=== PATIENT | male | born 1975 | race Caucasian/White ===

== ENCOUNTER 2025-03-08 09:10 | Inpatient (IN) | payer MEDICAID, SELFPAY ==
[2025-03-08] VITALS (7 sets, daily range): BP systolic 123–159; BP diastolic 78–102; PULSE 62–95; RESP 15–19; TEMP 36.7–36.9; O2SAT 95–99; BMI 26.6
--- NOTE | 2025-03-08 09:32 | EDS_ITS ---
HPI History of Present Illness Chief Complaint: ETOH Intox PFSH PFSH Home Medications ?Medication ?Instructions ?Recorded ?Last Taken ?Type NK 03/08/25 Unknown History Allergy/AdvReac Type Severity Reaction Status Date / Time No Known Allergies Allergy Verified 03/08/25 09:11 Social History Smoking Status: Current every day smoker tobacco type: cigarettes EXAM Physical Exam Const Vital Signs: 03/08/25 09:11 03/08/25 09:11 03/08/25 10:06 Temperature 98.4 F Temperature Source Oral Pulse Rate 95 67 72 Respiratory Rate 16 19 H 19 H Blood Pressure 147/102 H 154/78 H 136/90 H Blood Pressure Mean 117 103 105 Pulse Ox 98 95 99 Oxygen Delivery Method Room Air Room Air Room Air 03/08/25 10:53 03/08/25 12:00 Temperature Temperature Source Pulse Rate 78 62 Respiratory Rate 19 H 15 Blood Pressure 159/98 H 135/89 H Blood Pressure Mean 118 104 Pulse Ox 98 96 Oxygen Delivery Method Room Air Room Air MDM MDM MDM Narrative Medical decision making narrative: HISTORY OF PRESENT ILLNESS: Chief complaint: Alcohol detox 50-year-old male presents with request to enter alcohol detox. Notes he drinks at least a 12 pack a day. Last drink was yesterday. Denies other drug use. Denies any symptomatology other than nausea. Denies headache. REVIEW OF SYSTEMS: Pertinent positives: Nausea Pertinent negatives: Headache, chest pain, shortness of PHYSICAL EXAM: Nursing triage notes reviewed, Vital signs reviewed Constitutional: please see mdm HENT: MMM Eyes: Pupils equal round and reactive to light, Extraocular muscles intact Neck: No stridor, no JVD, full neck ROM Lungs: Clear to auscultation, No wheezing or rales. No increased work of breathing, no conversational dyspnea, no accessory muscle use, no nasal flaring. No respiratory distress noted Heart: Regular rate and rhythm, No murmurs, No rubs and No gallops, 2+ distal pulses (radial, femoral, posterior tibial) in all extremities Abdomen: Soft, there is no tenderness, rigidity, rebound or guarding, no obvious peritoneal signs, no palpable pulsatile abdominal masses, no auscultated abdominal bruit : No CVAT Extremities: No edema Neuro: No new focal neurological deficits, cranial nerves II through XII intact, 5/5 strength in all present extremities. Intact sensation to light touch in all present extremities, 2+ reflexes bilateral patella tendons. Skin: No rash or lesions noted MEDICAL DECISION MAKING: Chief Complaint: please see HPI External records reviewed: Reviewed prior labs, images, cardiovascular studies Factors affecting care: history of alcohol abuse Social determinants of health: history of alcohol abuse History obtained from others: none Consults: internal medicine (Dr. Justice) excepted patient's case to [facility] MDM Narrative: The patient is initially hemodynamically stable, afebrile nontoxic-appearing. Exam unremarkable. medical clearance labs were obtained. Patient is treated with nicotine patch and Zofran for symptomatic relief. ALL IMAGES (IF OBTAINED) HAVE BEEN PERSONALLY REVIEWED AND INTERPRETED BY MYSELF. CBC with leukocytosis suggestive of systemic information, no anemia or thrombocytopenia BMP without evidence of significant electrolyte abnormalities, no anion gap, no acute kidney injury. Serum alcohol negative Urine tox cream Patient was medically cleared for detox admission. Discussed with hospitalist accepted the patient's case to [facility]. The patient and/or family, caregivers express understanding. The patient and/or family, caregivers agrees with the plan. Shared decision making: I will have a discussion with the patient and or visitors regarding risk/benefits of further testing or admission. They will be made aware of of the risk/benefits inherent in this decision they will be given the opportunity to voice understanding. Total critical care time today provided was at least 0 minutes. This excludes separately billable procedures. Critical care time (if documented) is secondary to the patient having high probability of clinically significant/life threatening deterioration in the patient's condition which required my urgent intervention. Impression: 1. Encounter for alcohol detox 2. History of alcohol abuse Dispo: Admit to [facility] This note was generated with [employer] dictation software. It may contain incorrect words, spelling, and punctuation that were not noted in review of the chart prior to signing. Lab Data Labs: Laboratory Results - last 24 hr 03/08/25 03/08/25 09:24 10:48 WBC 11.3 H RBC 5.28 Hgb 17.1 H Hct 50.2 MCV 95.1 H MCH 32.4 H MCHC 34.1 RDW Std Deviation 53.0 H RDW Coeff of Chloe 15.1 H Plt Count 330 MPV 10.3 Immature Gran % (Auto) 0.500 Neut % (Auto) 73.5 H Lymph % (Auto) 13.9 L [place] % (Auto) 8.6 Eos % (Auto) 2.9 Baso % (Auto) 0.6 Absolute Neuts (auto) 8.3 H Absolute Lymphs (auto) 1.57 Nucleated RBC % 0 Sodium 138 Potassium 3.6 Chloride 98 Carbon Dioxide 27.3 Anion Gap 14 BUN 13 Creatinine 0.81 Estim Creat Clear Calc 107.89 Est GFR (MDRD) Non-Af 107 BUN/Creatinine Ratio 15.9 Glucose 92 Calcium 9.7 Urine Opiates Screen NEGATIVE U Buprenorphine Qual NEGATIVE Ur Oxycodone Screen NEGATIVE Urine Methadone Screen NEGATIVE Urine Fentanyl Screen NEGATIVE Ur Barbiturates Screen NEGATIVE Ur Phencyclidine Scrn NEGATIVE Ur Amphetamines Screen NEGATIVE U Benzodiazepines Scrn NEGATIVE Urine Cocaine Screen NEGATIVE U Cannabinoids Screen NEGATIVE Ethyl Alcohol < 10.1 Discharge Plan Triage Chief Complaint: ETOH Intox ED Provider: Daniel Minor Dx/Rx/DC Orders Prescriptions: No Action NK Primary Care Provider: Care Physician,No Primary Referrals: Care Physician,No Primary [Primary Care Provider] - Print Language: German
--- NOTE | 2025-03-08 10:32 | EKG12_ITS ---
Test Reason : DETOX Blood Pressure : */* mmHG Vent. Rate : 68 BPM Atrial Rate : 68 BPM P-R Int : 152 ms QRS Dur : 80 ms QT Int : 414 ms P-R-T Axes : 72 68 78 degrees QTcB Int : 440 ms Normal sinus rhythm Normal ECG Confirmed by Manny Busby ([id number]), city editor ESTEFANI DREW ([id number]) on 03/13/2025 12:09:18 PM Referred By: Confirmed By: Manny Busby
[2025-03-08 10:50] LABS: Absolute Lymphocyte Count 1.57 X10^3/uL (0.83-4.51); Absolute Neutrophil Count 8.3 X10^3/uL (2.0-7.7); Basophil# 0.07 X10^3/uL; Basophil% 0.6 % (0-1); Eosinophil# 0.33 X10^3/uL; Eosinophils% 2.9 % (0-5); Hematocrit 50.2 % (40-54); Hemoglobin 17.1 g/dL (13.0-16.5); Lymphocyte # 1.57 X10^3/ul (0.83-4.51); Lymphocyte % 13.9 % (19-41); Mean Corp Hgb Conc 34.1 g/dL (32-36); Mean Corpuscular Hgb 32.4 pg (27.0-32.0); Mean Corpuscular Volume 95.1 fL (80-94); Mean Platelet Vol. 10.3 fl (6.2-12.0); Monocyte# 0.98 X10^3/uL; Monocyte% 8.6 % (0-10); NRBC Flagged by Analyzer 0 % (0-5); Neutrophil # 8.32 X10^3/uL (2.7-7.7); Neutrophil % 73.5 % (47-70); Platelet Count 330 K/mm3 (150-450); RBC Distribution Width CV 15.1 % (11.6-14.6); Red Blood Count 5.28 M/mm3 (4.6-6.2); White Blood Count 11.3 K/mm3 (4.4-11.0)
[2025-03-08] MEDS: Ondansetron 4 MG/2 ML Vial IV (11:09)
[2025-03-08 11:13] LABS: Amphetamine Urine NEGATIVE (<1000 ng/mL); Barbiturate Urine NEGATIVE (< 200 ng/mL); Benzodiazepine Urine NEGATIVE (< 200 ng/mL); Buprenorphine Urine NEGATIVE (< 200 ng/mL); Cocaine Urine NEGATIVE (< 300 ng/mL); Fentanyl, Urine NEGATIVE; Methadone Urine NEGATIVE (< 300 ng/mL); Opiates Urine NEGATIVE (< 300 ng/mL); Oxycodone, Urine NEGATIVE (< 100 ng/mL); PCP Urine NEGATIVE (< 25 ng/mL); THC Urine NEGATIVE (< 50 ng/mL)
[2025-03-08 11:14] LABS: Alcohol, Blood (Medical)-Serum < 10.1 mg/dL (<=10.0); Anion Gap 14 (5-15); BUN 13 mg/dL (4-19); BUN/Creat Ratio 15.9 RATIO (10-20); Calcium,Total 9.7 mg/dL (7.6-11.0); Carbon Dioxide 27.3 mmol/L (21.0-32.0); Chloride 98 mmol/L (98-108); Creatinine, Serum 0.81 mg/dL (0.70-1.20); EST Glomerular Filtration Rate 107 (>60); Estimated Creatinine Clearance 107.89 ml/min (50-250); Glucose 92 mg/dL (70-99); Potassium 3.6 mmol/L (3.3-5.1); Sodium Level 138 mmol/L (133-145)
--- NOTE | 2025-03-08 12:16 | HP.PCM.HOS_ITS ---
HPI - General General Date of Admission: 03/08/25 Date of Service: 03/08/25 Chief Complaint: Desire for detoxification HPI Narrative ELIZ COWART, is a 50 M with past medical history significant for alcohol dependence who presented to the emergency department requesting to undergo detoxification. Patient admitted to drinking 12 packs of 25 ounces of beer almost on a daily basis. Patient's last drink was almost 24 hours prior to his admission. Patient reports significant tremors but denied any seizures. Patient denied any nausea no vomiting. Per patient he had been to detox on 1 previous occasion. Workup in the ED was essentially unremarkable except for slight polycythemia. Admitted to monitored bed for further management [facility] Medical History (Updated 03/08/25 @ 12:[address] Rikki Justice MD) Alcohol dependence in sustained full remission Home Medications ?Medication ?Instructions ?Recorded ?Last Taken ?Type NK 03/08/25 Unknown History Allergy/AdvReac Type Severity Reaction Status Date / Time No Known Allergies Allergy Verified 03/08/25 09:11 Social History Smoking Status: Current every day smoker tobacco type: cigarettes ROS ROS Narrative GENERAL: denies fever, chills, night sweats, weight loss, anorexia HEENT: denies headache, sinus congestion, or drainage, dysphagia RESPIRATORY: denies cough, sputum production, shortness of breath, dyspnea on exertion CARDIAC: denies chest pain, palpitations, orthopnea, PND GASTROINTESTINAL: denies abdominal pain, nausea, vomiting, melena, GENITOURINARY: denies dysuria, urgency, frequency, heamaturia EXTREMITY: denies swelling MUSCULOSKELETAL: denies current joint pain or tenderness NEUROLOGIC: denies focal numbness, weakness, tingling HEMATOLOGIC: denies easy bruising and/or hemorrhage INTEGUMENT: denies rashes PSYCHIATRIC: denies suicidal or homicidal ideation Vital Signs Vital Signs Vital Signs: 03/08/25 09:11 03/08/25 09:11 03/08/25 10:06 Temperature 98.4 F Temperature Source Oral Pulse Rate 95 67 72 Respiratory Rate 16 19 H 19 H Blood Pressure 147/102 H 154/78 H 136/90 H Blood Pressure Mean 117 103 105 Pulse Ox 98 95 99 Oxygen Delivery Method Room Air Room Air Room Air 03/08/25 10:53 03/08/25 12:00 Temperature Temperature Source Pulse Rate 78 62 Respiratory Rate 19 H 15 Blood Pressure 159/98 H 135/89 H Blood Pressure Mean 118 104 Pulse Ox 98 96 Oxygen Delivery Method Room Air Room Air Weight Weight: 81.647 kg Body Mass Index (BMI) 26.6 Physical Exam Narrative GENERAL: Tremulous HEENT: Atraumatic; normocephalic EYES; Anicteric, Normal Conjunctiva NECK; supple, normal thyroid, RESPIRATORY: Diminished to auscultation CARDIOVASCULAR: Regular S1 S2, GI: soft, normoactive bowel sounds, : No Renal angle tenderness; EXTREMITIES: No edema, no clubbing, MUSCULOSKELETAL: no muscle wasting NEURO: Awake; no lateralizing signs. SKIN: No Rash PSYCH; Flat affect Results Lab / Micro Data 03/08/25 09:24 03/08/25 09:24 Labs: Laboratory Results - last 24 hr 03/08/25 09:24: WBC 11.3 H, RBC 5.28, Hgb 17.1 H, Hct 50.2, MCV 95.1 H, MCH 32.4 H, MCHC 34.1, RDW Std Deviation 53.0 H, RDW Coeff of Chloe 15.1 H, Plt Count 330, MPV 10.3, Immature Gran % (Auto) 0.500, Neut % (Auto) 73.5 H, Lymph % (Auto) 13.9 L, [place] % (Auto) 8.6, Eos % (Auto) 2.9, Baso % (Auto) 0.6, Absolute Neuts (auto) 8.3 H, Absolute Lymphs (auto) 1.57, Nucleated RBC % 0, Sodium 138, Potassium 3.6, Chloride 98, Carbon Dioxide 27.3, Anion Gap 14, BUN 13, Creatinine 0.81, Estim Creat Clear Calc 107.89, Est GFR (MDRD) Non-Af 107, BUN/Creatinine Ratio 15.9, Glucose 92, Calcium 9.7, Ethyl Alcohol < 10.1 03/08/25 10:48: Urine Opiates Screen NEGATIVE, U Buprenorphine Qual NEGATIVE, Ur Oxycodone Screen NEGATIVE, Urine Methadone Screen NEGATIVE, Urine Fentanyl Screen NEGATIVE, Ur Barbiturates Screen NEGATIVE, Ur Phencyclidine Scrn NEGATIVE, Ur Amphetamines Screen NEGATIVE, U Benzodiazepines Scrn NEGATIVE, Urine Cocaine Screen NEGATIVE, U Cannabinoids Screen NEGATIVE Assessment & Plan Assessment/Plan (1) Alcohol dependence in sustained full remission: PLAN: Plan Patient is a 50-year-old gentleman with history of chronic alcohol dependence presented with acute alcohol withdrawal 1. Acute alcohol withdrawal - Patient has been admitted for treatment with phenobarb taper in addition to adjuvant medications including gabapentin, Bentyl, hydroxyzine and clonidine as needed for alcohol withdrawal symptoms. Patient was also placed on thiamine and folic acidConsultation placed to 180 counseling services. Patient initial diagnostic workup reviewed in addition did order magnesium as well as phosphorus 2. Polycythemia ? Secondary to dehydration patient being rehydrated repeat CBC with differential ordered in a.m. 3. Tobacco dependence ? Counseled on cessation, offered nicotine patch for tobacco cravings 4. DVT prophylaxis ? Low risk to encourage early ambulation Charges/Coding Visit Charges Inpatient E&M: 23643 Init Hosp L2
[2025-03-08 12:50] LABS: Magnesium 2.2 mg/dL (1.5-2.2); Phosphorus 2.5 mg/dL (2.7-4.5)
[2025-03-08] MEDS: Lactated Ringers 1,000 ML 125 ML IV (14:44)
[2025-03-08] MEDS: Phenobarbital 32.4 MG Tablet 64.8 MG PO ×3 (14:45→23:11)
[2025-03-08] MEDS: Acetaminophen 500 MG Tablet PO (14:45)
[2025-03-08] MEDS: Ondansetron 8 MG Tablet PO (14:45)
--- NOTE | 2025-03-08 16:19 | ADDICTION ---
Pt was met with to complete the [facility] assessments, AUDIT, DUDIT, ASAM, MSE, DC Plan, and to discuss tx options. Pt presents as a 50 year old M admitted to [facility] d/t daily alcohol consumption of at least a twelve pack of beer every day for many years. Pt admits he has been struggling with chronic relapse. Pt reports that he is returning to the sober living home in [facility] where he has been living for one month and is receiving support for his recovery through the [facility]. Pt states that his counselor Zaynab Andrews is going to transport him from detox back to [facility] sober home. Pt declined any interest in clinical tx for his MH or ZO indicating that he receives everything he needs through the [facility]. Pt was provided psychoeducation on the complexities of ZO and relapse and he was provided a packet of information and resources.
[2025-03-08] MEDS: traZODone 100 MG Tablet PO (23:15)
[2025-03-09] VITALS (8 sets, daily range): BP systolic 103–128; BP diastolic 60–77; PULSE 61–76; RESP 16–18; TEMP 36.4–36.7; O2SAT 97–100
[2025-03-09] MEDS: Phenobarbital 32.4 MG Tablet 64.8 MG PO ×6 (03:56→23:14)
[2025-03-09] MEDS: Thiamine Hydrochloride 100 MG Tablet PO (06:48)
[2025-03-09] MEDS: Folic Acid 1 MG Tablet PO (06:48)
--- NOTE | 2025-03-09 07:57 | PCM.PN.HOSP ---
Reason for Visit Reason for Visit: Diagnoses Alcohol dependence, in remission (03/08/25) Objective Data Objective Data Vital Signs: Vital Signs Temp Pulse Resp BP Pulse Ox O2 Del Method 98.0 F 70 18 128/60 H 98 Room Air 03/09/25 05:00 03/09/25 05:00 03/09/25 05:00 03/09/25 05:00 03/09/25 05:00 03/09/25 05:00 Oxygen Delivery Method Room Air Weight: 180 lb Body Mass Index (BMI) 26.6 Intake & Output: Intake and Output for Last 24 Hours 03/07/25 03/08/25 03/09/25 23:59 23:59 23:59 Intake Total 1000 / 1450 800 / 800 Balance 1000 / 1450 800 / 800 Lab / Micro Data 03/08/25 09:24 03/08/25 09:24 Labs: Laboratory Results - last 24 hr 03/08/25 09:24: WBC 11.3 H, RBC 5.28, Hgb 17.1 H, Hct 50.2, MCV 95.1 H, MCH 32.4 H, MCHC 34.1, RDW Std Deviation 53.0 H, RDW Coeff of Chloe 15.1 H, Plt Count 330, MPV 10.3, Immature Gran % (Auto) 0.500, Neut % (Auto) 73.5 H, Lymph % (Auto) 13.9 L, [place] % (Auto) 8.6, Eos % (Auto) 2.9, Baso % (Auto) 0.6, Absolute Neuts (auto) 8.3 H, Absolute Lymphs (auto) 1.57, Nucleated RBC % 0, Sodium 138, Potassium 3.6, Chloride 98, Carbon Dioxide 27.3, Anion Gap 14, BUN 13, Creatinine 0.81, Estim Creat Clear Calc 107.89, Est GFR (MDRD) Non-Af 107, BUN/Creatinine Ratio 15.9, Glucose 92, Calcium 9.7, Phosphorus 2.5 L, Magnesium 2.2, Ethyl Alcohol < 10.1 03/08/25 10:48: Urine Opiates Screen NEGATIVE, U Buprenorphine Qual NEGATIVE, Ur Oxycodone Screen NEGATIVE, Urine Methadone Screen NEGATIVE, Urine Fentanyl Screen NEGATIVE, Ur Barbiturates Screen NEGATIVE, Ur Phencyclidine Scrn NEGATIVE, Ur Amphetamines Screen NEGATIVE, U Benzodiazepines Scrn NEGATIVE, Urine Cocaine Screen NEGATIVE, U Cannabinoids Screen NEGATIVE Assessment & Plan Assessment/Plan (1) Alcohol dependence in sustained full remission: PLAN: Plan Patient is a 50-year-old gentleman with history of chronic alcohol dependence presented with acute alcohol withdrawal 1. Acute alcohol withdrawal syndrome with history of chronic alcohol use and dependence: Patient is being admitted to [facility] floor. Patient on phenobarbital based order set along with other adjunctive medications gabapentin, Bentyl, Vistaril, clonidine, Klonopin as needed for alcohol withdrawal symptom control. Patient is on thiamine and folate acid. CIWA monitor. employee development manager 180 consulted. Mild hypokalemia and hypophosphatemia: Neutra-Phos ordered. 2. Polycythemia ? Secondary to dehydration patient being rehydrated: Repeat CBC tomorrow 3. Tobacco dependence ? Counseled on cessation, offered nicotine patch for tobacco cravings 4. DVT prophylaxis ? Low risk to encourage early ambulation Charges/Coding Visit Charges Inpatient E&M: 78579 Subs Hosp L2
[2025-03-09] MEDS: Ondansetron 8 MG Tablet PO (08:11)
[2025-03-09] MEDS: hydrOXYzine PAM 25 MG Capsule 50 MG PO ×3 (08:11→20:52)
[2025-03-09] MEDS: Dicyclomine 10 MG Capsule 20 MG PO ×2 (08:11→14:43)
[2025-03-09] MEDS: Gabapentin 300 MG Capsule PO (14:43)
[2025-03-09] MEDS: Na Biphos/Potassium Phosphate PACKET 1 PACKET PO ×2 (14:44→20:52)
[2025-03-09] MEDS: Ibuprofen 600 MG Tablet PO (20:51)
[2025-03-09] MEDS: 0.9% Saline Lock 10 ML Syringe IV (20:53)
[2025-03-09] MEDS: Acetaminophen 500 MG Tablet PO (23:14)
[2025-03-09] MEDS: traZODone 100 MG Tablet PO (23:14)
[2025-03-10 03:02] VITALS: BP 99/70; PULSE 55; RESP 18; TEMP 36.4; O2SAT 96
[2025-03-10] MEDS: Phenobarbital 32.4 MG Tablet 64.8 MG PO ×3 (03:08→11:18)
[2025-03-10 05:58] LABS: Absolute Lymphocyte Count 3.38 X10^3/uL (0.83-4.51); Basophil# 0.03 X10^3/uL; Basophil% 0.4 % (0-1); Eosinophil# 0.76 X10^3/uL; Eosinophils% 9.5 % (0-5); Hematocrit 39.1 % (40-54); Hemoglobin 13.1 g/dL (13.0-16.5); Lymphocyte # 3.38 X10^3/ul (0.83-4.51); Lymphocyte % 42.3 % (19-41); Mean Corp Hgb Conc 33.5 g/dL (32-36); Mean Corpuscular Hgb 32.1 pg (27.0-32.0); Mean Corpuscular Volume 95.8 fL (80-94); Mean Platelet Vol. 9.9 fl (6.2-12.0); Monocyte# 0.75 X10^3/uL; Monocyte% 9.4 % (0-10); NRBC Flagged by Analyzer 0 % (0-5); Neutrophil % 37.4 % (47-70); Platelet Count 218 K/mm3 (150-450); RBC Distribution Width CV 14.9 % (11.6-14.6); RBC Distribution Width SD 52.9 fl (35.1-43.9); Red Blood Count 4.08 M/mm3 (4.6-6.2)
[2025-03-10 06:19] VITALS: BP 113/70; PULSE 61; RESP 16; TEMP 36.6; O2SAT 98
[2025-03-10] MEDS: Na Biphos/Potassium Phosphate PACKET 1 PACKET PO (06:19)
[2025-03-10 06:25] LABS: Anion Gap 9 (5-15); BUN 14 mg/dL (4-19); BUN/Creat Ratio 14.4 RATIO (10-20); Calcium,Total 8.4 mg/dL (7.6-11.0); Carbon Dioxide 25.6 mmol/L (21.0-32.0); Chloride 103 mmol/L (98-108); Creatinine, Serum 0.96 mg/dL (0.70-1.20); EST Glomerular Filtration Rate 96 (>60); Estimated Creatinine Clearance 91.03 ml/min (50-250); Glucose 109 mg/dL (70-99); Potassium 3.9 mmol/L (3.3-5.1); Sodium Level 137 mmol/L (133-145)
[2025-03-10] MEDS: Folic Acid 1 MG Tablet PO (08:53)
[2025-03-10] MEDS: Thiamine Hydrochloride 100 MG Tablet PO (08:53)
[2025-03-10] MEDS: Gabapentin 300 MG Capsule PO (08:56)
--- NOTE | 2025-03-10 10:48 | DCINST_ITS ---
Discharge Instructions Diet Discharge Diet: No restrictions DC O2, CPAP, BIPAP needs Home O2 Discharge instructions: No Dressing / Incision Discharge Activity: Return to Normal Activity Weight Bearing Status: Weight bearing as tolerated Dressing / Incision Call your doctor if you observe: Fever of 101 or Higher, Coldness, Increased Pain, Numbness or Tingling, Change in Color, Inability to urinate, Inability to have a bowel movement, Shortness of breath, Dizziness, Fainting spells, Swelling in the ankles, Chest pain, Prolonged hiccupping, Increased palpitations (irregular heartbeat) and Calf discomfort Follow Up Care When: IN 2 WEEKS Test Results: Test results from this visit will be discussed in further detail at your follow- up appointment, if applicable. Discharge Plan Admission Admit Date/Time: 03/08/25 12:10 Primary Reason for Your Visit: Acute alcohol withdrawal syndrome Attending Provider: Akbar Zepeda Primary Care Provider: Sofiya Gonzalez,No Primary Consulting Providers: Rikki Justice Instructions Additional Instructions / Restrictions: Follow-up with 180 as an outpatient Discharge Orders/Prescriptions Prescriptions: New thiamine HCl (vitamin B1) 100 mg Tablet 100 mg PO DAILYCM 30 Days Qty: 30 2RF nicotine 21 mg/24 hr Patch 24 Hour 21 mg transdermal DAILY 28 Days Qty: 28 0RF folic acid 1 mg Tablet 1 mg PO DAILY@0800 Qty: 30 2RF Referrals / Follow Up: Care Physician,No Primary [Primary Care Provider] - Disposition Disposition (needs filled in before D/C Order can be placed): Home, Self Care
[2025-03-10 11:15] VITALS: BP 108/87; PULSE 67; RESP 16; TEMP 36.7; O2SAT 98
[2025-03-10] MEDS: hydrOXYzine PAM 25 MG Capsule 50 MG PO (11:18)
--- NOTE | 2025-03-10 11:51 | DS.PCM_ITS ---
Providers Date of Admission: 03/08/25 Date of Discharge: 03/10/25 Primary Care Physician: No Primary Care Phys Reason For Visit: ALCOHOL WITHDRAWAL Diagnosis Discharge Diagnosis (1) Alcohol dependence in sustained full remission: Status: Acute Code(s): F10.21 - Alcohol dependence, in remission Plan Patient is a 50-year-old gentleman with history of chronic alcohol dependence presented with acute alcohol withdrawal 1. Acute alcohol withdrawal syndrome with history of chronic alcohol use and dependence: [facility] Patient on phenobarbital based order set along with other adjunctive medications gabapentin, Bentyl, Vistaril, clonidine, Klonopin as needed for alcohol withdrawal symptom control. Patient is on thiamine and folate acid. CIWA monitor. manager strategic marketing 180 consulted. 03/10: Patient is doing good. Has mild anxiety otherwise no hallucinations or seizure. Mild hypokalemia and hypophosphatemia: Neutra-Phos ordered. 03/10: Hypokalemia resolved. 2. Polycythemia ? Secondary to dehydration patient being rehydrated: Repeat CBC tomorrow 3. Tobacco dependence ? Counseled on cessation, offered nicotine patch for tobacco cravings 4. DVT prophylaxis ? Low risk to encourage early ambulation Discharge medication reconciliation done. Discharge follow-up instructions completed. Discharge process discussed with the patient and all questions were answered to patient's satisfaction. Follow with PCP in 1 to 2 weeks Total time spent, exact 35 minutes on discharge meds reconciliation, examination, coordination of care with nurses and ancillary staff, review of imaging and blood test and discussion with the patient on follow-up instructions. Medications at Discharge Home Medications folic acid 1 mg tablet 1 mg PO DAILY@0800 #30 tabs 03/10/25 nicotine 21 mg/24 hr daily transdermal patch 21 mg transdermal DAILY 28 days #28 ea 03/10/25 potassium, sodium phosphates 280 mg-160 mg-250 mg oral powder packet 1 packet PO TID 5 days #15 ea 03/10/25 thiamine HCl (vitamin B1) 100 mg tablet 100 mg PO DAILYCM 30 days #30 tabs 03/10/25 Physical Exam Narrative Seen and examined Mild anxiety. Denies hallucinations Physical exam General: Alert, Oriented x3, Cooperative HEENT: Atraumatic, PERRLA, EOMI, Normocephalic. Oral: No Gingival or Mucosal Lesions/ Ulcerations Neck: Supple, No JVD, Negative Carotid Bruits Chest wall/Lungs: Air entry equal in bilateral lung bases. No crepitation/rhonchi Cardiovascular: Regular rate and rhythm, Normal S1,S2, No M/G/R Abdomen: Bowel Sounds Present, Soft, Non Tender, Non-Distended : No dysuria. No renal angle tenderness. No suprapubic tenderness. Extremities: No edema, Capillary Refill Less than 3 Seconds Skin: No rashes, No breakdown Musculoskeletal: No Tenderness to Palpation of Joints or Extremities Neurological: Cranial nerves II-XII grossly intact, DTR 2+/4. No acute focal neurological deficit. Psych/Mental Status: Normal Affect, Appropriate. Weight / BMI Weight Weight: 180 lb Body Mass Index (BMI) 26.6 ABG / Lab / Microbiology Data 03/10/25 05:23 03/10/25 05:23 Laboratory: Laboratory Results - last 24 hr 03/10/25 05:23: WBC 8.0, RBC 4.08 L, Hgb 13.1, Hct 39.1 L, MCV 95.8 H, MCH 32.1 H, MCHC 33.5, RDW Std Deviation 52.9 H, RDW Coeff of Chloe 14.9 H, Plt Count 218, MPV 9.9, Immature Gran % (Auto) 1.000 H, Neut % (Auto) 37.4 L, Lymph % (Auto) 42.3 H, [place] % (Auto) 9.4, Eos % (Auto) 9.5 H, Baso % (Auto) 0.4, Absolute Neuts (auto) 3.0, Absolute Lymphs (auto) 3.38, Nucleated RBC % 0, Sodium 137, Potassium 3.9, Chloride 103, Carbon Dioxide 25.6, Anion Gap 9, BUN 14, Creatinine 0.96, Estim Creat Clear Calc 91.03, Est GFR (MDRD) Non-Af 96, BUN/Creatinine Ratio 14.4, Glucose 109 H, Calcium 8.4 D/C Instructions Discharge Diet: No restrictions Weight Bearing Status: Weight bearing as tolerated Call your doctor if you observe: Fever of 101 or Higher, Coldness, Increased Pain, Numbness or Tingling, Change in Color, Inability to urinate, Inability to have a bowel movement, Shortness of breath, Dizziness, Fainting spells, Swelling in the ankles, Chest pain, Prolonged hiccupping, Increased palpitations (irregular heartbeat) and Calf discomfort DC O2, CPAP, BIPAP Needs Home O2 Discharge instructions: No When: IN 2 WEEKS Meaningful Use Info Meaningful Use Meaningful Use Diagnoses (Choose all that apply): None applicable Ischemic Stroke Statin Dosing Therapy Reference: STATIN DOSE THERAPY REFERENCE: * Patients > 75 years receive moderate or high dose statin therapy. * Patients 75 years or YOUNGER should receive HIGH intensity statin dose unless contraindicated. You will be required to document reason for non-treatment if statin daily dose does not meet guidelines. HIGH DOSE STATIN THERAPY DAILY Atorvastatin > than or = to 40 mg Rosuvastatin > than or = to 20 mg Amlodipine + Atorvastatin > than or = to 2.5/40 mg Ezetimibe + Simvastatin 10/80 mg Simvastatin 80mg Discharge Plan Admission Admit Date/Time: 03/08/25 12:10 Primary Reason for Your Visit: Acute alcohol withdrawal syndrome Attending Provider: Akbar Zepeda Primary Care Provider: Care Physician,No Primary Consulting Providers: Rikki Justice Instructions Additional Instructions / Restrictions: Follow-up with 180 as an outpatient Discharge Orders/Prescriptions Prescriptions: New thiamine HCl (vitamin B1) 100 mg Tablet 100 mg PO DAILYCM 30 Days Qty: 30 2RF nicotine 21 mg/24 hr Patch 24 Hour 21 mg transdermal DAILY 28 Days Qty: 28 0RF folic acid 1 mg Tablet 1 mg PO DAILY@0800 Qty: 30 2RF potassium, sodium phosphates 280-160-250 mg Powder In Packet 1 packet PO TID 5 Days Qty: 15 0RF Referrals / Follow Up: Care Physician,No Primary [Primary Care Provider] - Disposition Disposition (needs filled in before D/C Order can be placed): Home, Self Care Charges/Coding Visit Charges Inpatient E&M: 63173 Disch Hosp >30min
--- NOTE | 2025-03-10 12:05 | NURSING ---
received a call from zaynab from contact list asking about discharge. discussed transportation. talked with Jhonatan REY coordinator as well as we were under the impression from patient that talent specialist was providing transportation to inpatient facility. Aware per Zaynab that she will start working on arranging transport and will call unit with time, ETA. primary RN updated.
--- NOTE | 2025-03-10 16:39 | NURSING ---
received a phone call from Zaynab from pt's contact list. zaynab verbalized concern that patient was not discharged with supportive meds. explained it is common practice for physician's not to discharge with supportive medications as requesting- script for something for anxiety and sleep. discussed meds were prescribed. explained multiple times to Zaynab that all i can do is verbalize their concern to Dr. Zepeda. Noted on chart Pt's phone number was the same number listed as Zaynab. asked Zaynab if pt Antony has access to his phone so this nurse could call him back with a response from Dr. Zepeda. Zaynab verbalized they do not have the same phone number and provided a number of [phone] for Antony. registration called and updated phone number. Dr. Zepeda updated, talked with him on the phone. aware he would send script for Buspar- pt called with update.
== END 2025-03-10 13:24 | disposition home or self-care (01) | DRG 775 ==
LOC: ED 09:48 → MS3 12:27
PROVIDERS: Admitting Provider Internal Medicine; Emergency Provider Emergency Medicine; Visit Provider Internal Medicine
DX: F10.239 Alcohol dependence with withdrawal, unspecified (principal); D75.1 Secondary polycythemia; F17.210 Nicotine dependence, cigarettes, uncomplicated; E86.0 Dehydration; Y90.0 Blood alcohol level of less than 20 mg/100 ml
CPT/HCPCS: 36415; 80048; 80307; 82077; 83735; 84100; 85025; 93005; 99285; A4216; J2405